=== PATIENT | female | born 1965 | race Caucasian/White ===

== ENCOUNTER 2019-05-19 10:33 | Emergency (ER) | payer MEDICAID ==
[~2019-05-19] VITALS: Ht 170.2 cm; Wt 61.4 kg
[~2019-05-19 10:33] MED LIST: IBUP-1984 PO
[2019-05-19] MEDS ORDERED: normal saline 1000ML IV soln IVB ONE (10:55)
[2019-05-19] MEDS ORDERED: ondansetron/PF 4mg/2ml inj IV ONE (11:05)
[2019-05-19] MEDS ORDERED: morphine 4 MG/ML inj SYRINge IV PRN (11:05)
[2019-05-19 11:10] LABS: BASOPHILS # (AUTO) 0.1 X10'3 (0-0.2); BASOPHILS % (AUTO) 0.4 % (0-1); EOSINOPHILS % (AUTO) 0 % (0-6); HEMOGLOBIN 15.7 g/dl (12.0-16.0); LYMPHOCYTES # (AUTO) 0.7 X10'3 (1.1-4.8); MEAN CORPUSCULAR HEMOGLOBIN 29.1 PG (27.0-31.0); MEAN CORPUSCULAR HGB CONC 33.3 g/dL (33.0-36.5); MEAN CORPUSCULAR VOLUME 87.3 FL (78-98); MEAN PLATELET VOLUME 9.6 FL (7.4-10.4); MONOCYTES # (AUTO) 1.6 X10'3 (0-0.9); MONOCYTES % (AUTO) 11.2 % (2-12); NEUTROPHILS # (AUTO) 12.2 X10'3 (1.8-7.7); NEUTROPHILS % (AUTO) 83.4 % (42-75); PLATELET COUNT 188 X10'3 (140-440); RED BLOOD COUNT 5.39 X10'6 (4.20-5.60); RED CELL DISTRIBUTION WIDTH 14.2 % (11.5-14.5); WHITE BLOOD COUNT 14.7 X10'3 (4.5-11.0)
[2019-05-19 11:25] LABS: ALANINE AMINOTRANSFERASE 191 U/L (12-78); ALBUMIN 3.4 G/DL (3.4-5.0); ALBUMIN/GLOBULIN RATIO 0.6 (1.1-1.5); ALKALINE PHOSPHATASE 175 IU/L (46-116); ANION GAP 12 (8-16); ASPARTATE AMINO TRANSFERASE 105 U/L (10-37); BILIRUBIN,TOTAL 1.4 MG/DL (0.1-1.0); BLOOD UREA NITROGEN 12 MG/DL (7-18); BUN/CREATININE RATIO 10.3 (6.6-38.0); CALCIUM 11.5 MG/DL (8.5-10.1); CHLORIDE 101 MMOL/L (99-107); CREATININE 1.17 MG/DL (0.40-0.90); GLUCOSE 116 MG/DL (70-104); POTASSIUM 4.1 MMOL/L (3.5-5.1); SODIUM 134 MMOL/L (135-145); TOTAL CARBON DIOXIDE 21.5 MMOL/L (24-32); TOTAL PROTEIN 8.7 G/DL (6.4-8.2); eGFR 48 ML/MIN
[2019-05-19 11:30] LABS: PARTIAL THROMBOPLASTIN TIME 32 SECONDS (22-32)
[2019-05-19] MEDS ORDERED: CefTRIAXone 2gm/D5W 50ml 50 ML IV ONE (11:30)
[2019-05-19 11:45] LABS: CLARITY,URINE CLOUDY (Clear); COLOR,URINE YELLOW (Yellow); GLUCOSE, URINE NEGATIVE (Neg); KETONES,URINE 15 mg/dl (Neg); LEUKOCYTE ESTERASE ,URINE SMALL (Neg); NITRITES, URINE POSITIVE (Neg); OCCULT BLOOD,URINE TRACE-INTACT (Neg); PROTEIN,URINE 30 mg/dl (Neg)
[2019-05-19 11:47] LABS: UA COLLECTION TYPE CLN CATCH MIDSTREAM
[2019-05-19 11:55] LABS: SQUAMOUS EPITHELIAL CELL,UR MODERATE /LPF (FEW)
[2019-05-19 11:56] LABS: BACTERIA,URINE 3+ /HPF (Neg); RBC,URINE 0-2 /HPF (0-2); WBC CLUMPS,URINE MANY /HPF (NEGATIVE)
[2019-05-19] MEDS ORDERED: ketorolac tromethamine 15mg/ml inj. IV ONE (12:10)
[2019-05-19] MEDS ORDERED: phenazopyridine 100mg tablet PO ONE (12:10)
[2019-05-19] MEDS ORDERED: ketorolac trometh. 30mg/ml inj. IV ONE (12:10)
[2019-05-19 12:15] LABS: URINE AMPHETAMINE SCREEN POSITIVE (Neg); URINE BARBITUATE SCREEN NEGATIVE (Neg); URINE BENZODIAZEPINES SCREEN NEGATIVE (Neg); URINE CANNABINOID SCREEN NEGATIVE (Neg); URINE COCAINE SCREEN NEGATIVE (Neg); URINE METHADONE SCREEN NEGATIVE (Neg); URINE OPIATE SCREEN NEGATIVE (Neg); URINE PHENCYCLIDINE SCREEN NEGATIVE (Neg)
[2019-05-19] MEDS ORDERED: HYDR-3965 PO (13:39)
[2019-05-19] MEDS ORDERED: ONDA4TAB12 PO (13:39)
[2019-05-19] MEDS ORDERED: CEPH500C5 PO (13:39)
[2019-05-19 14:13] VITALS: BP 92/57
== END 2019-05-19 14:22 | disposition home or self-care (01) ==
LOC: ER 10:34
DX: N12 Tubulo-interstitial nephritis, not specified as acute or chronic (principal); R11.2 Nausea with vomiting, unspecified; R00.0 Tachycardia, unspecified; Z88.8 Allergy status to other drugs, medicaments and biological substances; Z79.2 Long term (current) use of antibiotics; Z79.899 Other long term (current) drug therapy
CPT/HCPCS: 36415; 71045; 76700; 80053; 80305; 81001; 82140; 83605; 84145; 85025; 85610; 85730; 87040; 87077; 87088; 87186; 87502; 87503; 96361; 96365; 96375; 99284; J0696; J1885; J2270; J2405; J7030